=== PATIENT | male | born 1945 | race Caucasian/White ===

== ENCOUNTER 2018-12-25 14:43 | Inpatient (IN) | payer MEDICARE ==
[~2018-12-25] VITALS: Ht 175.3 cm; Wt 68.0 kg
[2018-12-25 15:59] LABS: BASOPHILS ABSOLUTE AUTO 0.04 K/mm3 (0.00-0.23); BASOPHILS PERCENT AUTO 0 % (0-2); EOSINOPHILS ABSOLUTE AUTO 0.02 K/mm3 (0.00-0.68); EOSINOPHILS PERCENT AUTO 0 % (0-6); Hematocrit 48.7 % (37.0-53.0); Hemoglobin 16.4 g/dL (13.5-17.5); IMMATURE GRAN ABSOLUTE AUTO 0.03 K/mm3 (0.00-0.10); IMMATURE GRAN PERCENT AUTO 0 % (0-1); LYMPHOCYTES ABSOLUTE AUTO 0.69 K/mm3 (0.84-5.20); LYMPHOCYTES PERCENT AUTO 7 % (21-46); MONOCYTES ABSOLUTE AUTO 0.59 K/mm3 (0.16-1.47); MONOCYTES PERCENT AUTO 6 % (4-13); Mean Corpuscular HGB 33.7 pg (26.0-34.0); Mean Corpuscular HGB Conc 33.7 g/dL (31.5-36.5); Mean Corpuscular Volume 100 fL (80-100); Mean Platelet Volume 10.1 fL (9.1-12.4); NEUTROPHILS ABSOLUTE AUTO 8.09 K/mm3 (1.96-9.15); NEUTROPHILS PERCENT AUTO 86 % (41-73); Platelet Count 212 K/mm3 (150-400); RDW Coefficient Variation 11.8 % (11.7-14.2); RDW Standard Deviation 43.9 fL (35.1-46.3); Red Blood Cell Count 4.87 M/mm3 (4.30-5.90); White Blood Cell Count 9.46 K/mm3 (4.00-11.30)
[2018-12-25 16:22] LABS: Alanine Aminotransfer (ALT/SGP 23 U/L (12-78); Albumin, Blood 4.4 g/dL (3.4-5.0); Albumin/Globulin Ratio 1.1 (0.8-1.8); Alk Phos 60 U/L (50-136); Anion Gap 9 mmol/L (6-16); Aspartate Aminotrans (AST/SGOT 22 U/L (12-37); Bilirubin, Total 0.9 mg/dL (0.1-1.0); Blood Urea Nitrogen 12 mg/dL (8-24); Bun/Creatinine Ratio 14.2 (12.0-20.0); CO2, Blood 24 mmol/L (21-32); Calcium, Blood 9.7 mg/dL (8.5-10.1); Chloride, Blood 105 mmol/L (98-108); Creatinine, Blood 0.85 mg/dL (0.60-1.20); Globulin, Blood 3.9 g/dL (2.2-4.0); Glomerular Filtration Rate >60 (60-); Glucose, Blood 134 mg/dL (70-99); Potassium, Blood 4.4 mmol/L (3.5-5.5); Sodium, Blood 138 mmol/L (136-145); Total Protein, Blood 8.3 g/dL (6.4-8.2)
[2018-12-25 16:35] LABS: Source, Urine Clean Catch
[2018-12-25 16:52] LABS: Appearance, Urine Clear (Clear); Bilirubin, Urine Neg (Neg); Blood, Urine Neg (Neg); Color, Urine Yellow (P-Yellow); Glucose Qualitative, Urine Neg (Neg); Ketones, Urine 3+ (Neg); Leukocyte Esterase, Urine 1+ (Neg); Nitrite, Urine Neg (Neg); Protein, Urine 1+ (Neg); Specific Gravity, Urine 1.015 (1.003-1.022); Urobilinogen, Urine NORM (Normal)
[2018-12-25 17:05] LABS: Bacteria Rare /hpf; Red Blood Cells, Urine 0-2 /hpf (0-2); Squamous Epithelial Cells Few /hpf (Few)
--- NOTE | 2018-12-25 20:24 | NUR ---
12/25/182023 Fransico Yanez PT HAD PREOP ANTIBIOTICS UNASYN STARTED IN ER AND RE STARTED AT 1948. NEW 18 GUAGE IV STARTED BY BRITTANIE BARNEY IN LT WRIST.
--- NOTE | 2018-12-25 22:52 | NUR ---
PT ARRIVED TO ROOM ICU 15 POST OP AT 2224. PT AWAKE AND AGITATED BUT CONSOLEABLE. PT C/O ABD PAIN 8/[address] ORDOÑEZ AND DR. WEBB AT BEDSIDE. PT'S BP HYPERTENSIVE 198/106; 223/[address] WEBB STATED IS PT'S NORMAL AND THAT PT WAS AWARE OF HIS HTN BUT DOES NOT TREAT. DR. ORDOÑEZ AT THAT TIME GAVE VERBAL ORDER FOR ATIVAN 0.5mg AND WAS GIVEN AT 2244. PT POST OP OF RIGHT DARYL-COLECTOMY AND ARRIVED WITH MID ABD WOUND VAC IN PLACE WITH NO DRAINAGE NOTED IN TUBING AND IS SEALED WITH PROPER SUCTION. DR. ORDOÑEZ PLACING ORDERS AT THIS TIME.
--- NOTE | 2018-12-25 23:29 | NUR ---
O2 2L VIA N/C PLACED TO KEEP SATS >92%. PT NODDED YES IN UNDERSTANDING. WILL CONTINUE TO MONITOR.
--- NOTE | 2018-12-25 23:30 | NUR ---
PT REMAINS HYPERTENSIVE DESPITE ATIVAN AND FENTANYL ADMIN. WILL ADMINISTER HYDRALAZINE PER DR. FREIRE.
--- NOTE | 2018-12-25 23:56 | NUR ---
REPORT CALLED TO DOLORES GARCIA. ALL QUESTIONS ANSWERED.
--- NOTE | 2018-12-26 | NUR ---
RECEIVED HAND OFF FROM RADHA WEIR IN ICU USING SBAR. TRANSPORTED TO ROOM 218 VIA STRETCHER. TRANSFERED TO BED WITH FULL STAFF ASSISTANCE, TOLERATED WELL. LYING IN SEMI FOWLERS WITH EYES OPEN. AAO X3, BARRAZA, FOLLOWS ALL COMMANDS. ORIENTED TO ROOM, CALL SYSTEM, AND POC, VOICED UNDERSTANDING. VOICES CURRENT PAIN LEVEL OF 7/10, WILL CHECK ON PROGRESS OF SED [employer] PUMP WITH PHARMACY. RESPIRATIONS EVEN AND UNLABORRED ON O2 AT 1L/NC. LUNG SOUNDS CLEAR BILATERALLY. ABDOMEN SOFT AND NONDISTENDED. HYPOACTIVE BOWEL SOUNDS PRESENT IN ALL QUADS. NG TUBE CONNECTED TO LIWS AFTER PLACEMENT VERIFIED WITH AIR BOLUS AND RESIDUAL CHECK. MIDLINE INCISION WITH PREVENA IN PLACE, DRESSING IS PATENT. CONTINENT OF BOWEL AND BLADDER, USES URINAL. LEFT WRIST 18G SL PIV IS PATENT. RIGHT AC 18G PIV IS PATENT, INFUSING LR TO GRAVITY. DENIES FURTHER NEEDS OR WANTS AT THIS TIME. SAFETY MEASURES IN PLACE. WILL CONTINUE TO MONITOR.
[2018-12-26 05:53] LABS: BASOPHILS ABSOLUTE AUTO 0.03 K/mm3 (0.00-0.23); BASOPHILS PERCENT AUTO 0 % (0-2); EOSINOPHILS PERCENT AUTO 0 % (0-6); Hematocrit 46.9 % (37.0-53.0); Hemoglobin 15.6 g/dL (13.5-17.5); IMMATURE GRAN ABSOLUTE AUTO 0.06 K/mm3 (0.00-0.10); IMMATURE GRAN PERCENT AUTO 0 % (0-1); LYMPHOCYTES ABSOLUTE AUTO 0.42 K/mm3 (0.84-5.20); LYMPHOCYTES PERCENT AUTO 2 % (21-46); MONOCYTES ABSOLUTE AUTO 1.07 K/mm3 (0.16-1.47); MONOCYTES PERCENT AUTO 6 % (4-13); Mean Corpuscular HGB 33.4 pg (26.0-34.0); Mean Corpuscular HGB Conc 33.3 g/dL (31.5-36.5); Mean Corpuscular Volume 100 fL (80-100); Mean Platelet Volume 10.1 fL (9.1-12.4); NEUTROPHILS ABSOLUTE AUTO 16.04 K/mm3 (1.96-9.15); NEUTROPHILS PERCENT AUTO 91 % (41-73); Platelet Count 194 K/mm3 (150-400); RDW Coefficient Variation 12.1 % (11.7-14.2); RDW Standard Deviation 45.3 fL (35.1-46.3); Red Blood Cell Count 4.67 M/mm3 (4.30-5.90); White Blood Cell Count 17.62 K/mm3 (4.00-11.30)
[2018-12-26 06:16] LABS: Anion Gap 8 mmol/L (6-16); Blood Urea Nitrogen 11 mg/dL (8-24); Bun/Creatinine Ratio 12.9 (12.0-20.0); CO2, Blood 24 mmol/L (21-32); Calcium, Blood 8.6 mg/dL (8.5-10.1); Chloride, Blood 106 mmol/L (98-108); Creatinine, Blood 0.85 mg/dL (0.60-1.20); Glomerular Filtration Rate >60 (60-); Glucose, Blood 175 mg/dL (70-99); Sodium, Blood 138 mmol/L (136-145)
--- NOTE | 2018-12-26 19:42 | NUR ---
SHIFT SUMMARY PAIN HAS BEEN MANAGED WITH PO AND IV PAIN MEDICATION. PT SAT UP TO THE CHAIR WITH 2 PERSON ASSIST TODAY. FAMILY HAS BEEN PRESENT AND PT APPEARS IN [employer]ITS. VSS. REPORT GIVEN TO LILY GARCIA.
[2018-12-27 06:05] LABS: BASOPHILS ABSOLUTE AUTO 0.03 K/mm3 (0.00-0.23); BASOPHILS PERCENT AUTO 0 % (0-2); EOSINOPHILS ABSOLUTE AUTO 0.17 K/mm3 (0.00-0.68); EOSINOPHILS PERCENT AUTO 2 % (0-6); Hematocrit 41.4 % (37.0-53.0); Hemoglobin 13.2 g/dL (13.5-17.5); IMMATURE GRAN ABSOLUTE AUTO 0.02 K/mm3 (0.00-0.10); IMMATURE GRAN PERCENT AUTO 0 % (0-1); LYMPHOCYTES ABSOLUTE AUTO 0.94 K/mm3 (0.84-5.20); LYMPHOCYTES PERCENT AUTO 11 % (21-46); MONOCYTES ABSOLUTE AUTO 0.77 K/mm3 (0.16-1.47); MONOCYTES PERCENT AUTO 9 % (4-13); Mean Corpuscular HGB 32.4 pg (26.0-34.0); Mean Corpuscular HGB Conc 31.9 g/dL (31.5-36.5); Mean Corpuscular Volume 102 fL (80-100); NEUTROPHILS ABSOLUTE AUTO 7.06 K/mm3 (1.96-9.15); NEUTROPHILS PERCENT AUTO 79 % (41-73); Platelet Count 168 K/mm3 (150-400); RDW Coefficient Variation 12.3 % (11.7-14.2); RDW Standard Deviation 46.5 fL (35.1-46.3); Red Blood Cell Count 4.08 M/mm3 (4.30-5.90); White Blood Cell Count 8.99 K/mm3 (4.00-11.30)
[2018-12-27 06:23] LABS: Anion Gap 4 mmol/L (6-16); Blood Urea Nitrogen 10 mg/dL (8-24); Bun/Creatinine Ratio 10.6 (12.0-20.0); CO2, Blood 29 mmol/L (21-32); Calcium, Blood 8.4 mg/dL (8.5-10.1); Chloride, Blood 106 mmol/L (98-108); Creatinine, Blood 0.94 mg/dL (0.60-1.20); Glomerular Filtration Rate >60 (60-); Glucose, Blood 126 mg/dL (70-99); Potassium, Blood 3.8 mmol/L (3.5-5.5); Sodium, Blood 139 mmol/L (136-145)
--- NOTE | 2018-12-27 06:23 | NUR ---
SHIFT SUMMARY: PT ABLE TO GET REST LAST NIGHT. TREATED FOR PAIN 2X c 4MG IV MORPHINE c RELIEF. PT DID NOT PASS GAS OR HAVE BM THIS SHIFT. PT IS NPO BESIDES SIPS, CHIPS, AND POPSICLES. PERVENA DRESSING TO MIDLINE INCISION HAS SMALL BLOODY DRAINAGE. 4MG MORPHINE Q2H PRN. D5LR EUNNING @ 125 ML/HR. SUPPORTIVE FAMILY AT BEDSIDE AT START OF SHIFT. NO OTHER CHANGES TO REPORT. WILL CONT TO MONITOR AND PROVIDE CARE UNTIL PRESUMED BY ONCOMING RN.
--- NOTE | 2018-12-27 07:00 | NUR ---
REPORT FROM LILY GARCIA. ASSUMED PT CARE.
--- NOTE | 2018-12-27 07:23 | NUR ---
ASSESSMENT CHARTED. PT RESTING EASILY. WAKES WITH NOISE. PT C/O SOME ABD PAIN. MANAGED AT THIS TIME. 100ML YELLOW URINE EMPTIED FROM URINAL. PT DENIES NAUSEA.
--- NOTE | 2018-12-27 08:02 | NUR ---
PT MEDICATED PER EMAR ORDERS.
--- NOTE | 2018-12-27 08:30 | NUR ---
NEW CUP OF ICE CHIPS PROVIDED AND POPSICLE PROVIDED. PT APPEARS TO BE RESTING. EYES CLOSED. RESP EVEN AND NON LABORED.
--- NOTE | 2018-12-27 08:58 | NUR ---
PT MEDICATED BY OTHER STAFF FOR THIS RN. DR ORDOÑEZ AT BEDSIDE. WOULD LIKE POST VOID BLADDER SCAN AND I&O CATH FOR RESIDUAL OF >400ML. PLAN TO MONITOR FOR TODAY.
--- NOTE | 2018-12-27 12:15 | NUR ---
PT MEDICATED WITH OXYCODONE FOR PAIN BY OTHER STAFF.
--- NOTE | 2018-12-27 12:30 | NUR ---
PT VOIDED 100ML YELLOW URINE. POST VOID BLADDER SCAN SHOWED 322ML. ASSISTED PT TO STANDING AND PT ABLE TO VOID 125ML URINE. PT AMBULATED APPROX 50FT WITH MINIMAL ASSISTANCE. PT TO CHAIR TO SIT. ICE CHIPS PROVIDED. PT DOING IS.
--- NOTE | 2018-12-27 12:50 | NUR ---
PT BACK TO BED. PT VOIDED 75ML. LIGHTS DIMMED.
--- NOTE | 2018-12-27 13:32 | NUR ---
PT SLEEPING. NADN. RESP EVEN AND NON LABORED. NEW BAG IVF STARTED.
--- NOTE | 2018-12-27 14:20 | NUR ---
THIS RN RECIEVED REPORT FROM OTHER RN AND IS ASSUMING CARE OF PT AT THIS TIME.
--- NOTE | 2018-12-27 14:45 | NUR ---
Patient gave student nurse Marjorie Fung permission to work with him tomorrow and access his chart. 12/27/18 - 12/28/18
--- NOTE | 2018-12-27 18:04 | NUR ---
SHIFT SUMMARY PT TOLERATING ICE CHIPS. PT VOIDING. PT BEEN ASSISTED WITH ADL'S PRN. FAMILY IN/OUT OF ROOM. PT AMBULATED IN HALLWAY WITH ASSIST. PT ASSISTED WITH ABD BINDER. PT SITTING IN RECLINER CHAIR THIS EVENING, CALL LIGHT IN REACH.
--- NOTE | 2018-12-27 22:13 | NUR ---
2213: PT APPEARS IRRITABLE AND VERBALIZES IRRITATION THAT HIS PAIN MEDICATIONS WERE NOT ADMINISTERED PREVIOUSLY WRITTEN ON HIS WHITE BOARD. RN EXPLAINS THAT DISCUSSED AT SHIFT CHANGE SHE WOULD RETURN WITH PAIN MEDS AT A LATER TIME PT REQUESTED AND UPON RETURNING FOUND PT SLEEPING. PT STATES THAT HE WOULD LIKE PRN PAIN MEDS OFFERED AT TIME THEY ARE AGAIN AVAILABLE.
--- NOTE | 2018-12-28 00:43 | NUR ---
0043: PT CALLS AND RN ANSWERS LIGHT IN ROOM; PT REQUESTS PRN PAIN MEDS FOR ABD PAIN 5/10 AND RISING. RN RETURNS WITH PRN PAIN MEDICATION AND PT REFUSES MED STATING "HE DOESN'T WANT IT YET." CONTINUE TO OFFER PRN PAIN MEDS WHEN AVAILABLE.
--- NOTE | 2018-12-28 05:30 | NUR ---
SUMMARY: POD [address] ORDOÑEZ. VSS, AFEBRILE, ROOM AIR. TOLERATING CLEARS, BELCHING BUT NOT YET PASSING GAS. PAIN WELL CONTROLLED WITH PO PERCOCET AND IV MORPHINE. PT APPEARS FRUSTRATED AT TIMES WITH PROGRESSION POST-OP AND ANTICIPATED LENGTH OF RECOVERY. ENCOURAGE OOB ACTIVITY, AMBULATION OF HALLS AND UP TO CHAIR DURING DAY.
--- NOTE | 2018-12-28 10:00 | NUR ---
DR ORDOÑEZ HERE EARLIER, REPORTS PT TO HAVE SMALL AMT OF ICE CHIPS ONLY AT THIS TIME.
--- NOTE | 2018-12-28 14:04 | NUR ---
Pt. is in bed resting he reports doing well besides the Met pt in bed resting, he reports doing fine desides the minor pain he is going throuh, encouraged pt. and offered prayeers/.
--- NOTE | 2018-12-28 14:11 | NUR ---
Met pt lying in bed resting he reports doing we Pt is inn bed rsting he report doing fine encouraged pt. offered prayer and blessed pt.
--- NOTE | 2018-12-28 17:31 | NUR ---
DR ORDOÑEZ HERE TO SEE PT, REPORTS PLACE NGT. REPORTS TALKING WITH FEED WEIGHER.
--- NOTE | 2018-12-28 19:00 | NUR ---
NGT ATTEMPTED WITH NO SUCCESS AT THIS TIME, BRUSHER AND SHEARER TO ASSIST PT PULLED NGT OUT OF NOSE WHILE ATTEMPTING TO PLACE. PT HAD GREEN BILE LOOKING EMESIS. PT NOW REPORTS FEELING OF HAVING TO HAVE BM. PT ASSISTED TO BATHROOM FOR ATTEMPT OF HAVING BM.
--- NOTE | 2018-12-28 19:45 | NUR ---
PT CONT TO PULL OUT NGT WHEN BEING PLACED EVEN WHILE PT SITTING ON HANDS AND HANDS BEING HELD DOWN PER PT REQ TO ASSIST HIM IN NOT PULLING IT OUT WHILE BEING PLACED. MULT RN'S IN ROOM TO ASSIST. PT HAD MULT ATTEMPTS AND IS NOW REFUSING TO HAVE NGT AT THIS TIME. PT REPORTS "HAVING THROWN UP WHILE ATTEMPT EARLIER WAS ENOUGH OUT FOR ME". PT BEEN EDUCATED ON REASON FOR NGT. PT REPORTS FEELING OF HAVING TO HAVE BM. PT ASSISTED TO BATHROOM. WILL UPDATE HS RN.
--- NOTE | 2018-12-28 19:55 | NUR ---
SHIFT SUMMARY PT BEEN ASSISTED WITH ADL'S PRN. PT BEEN MED FOR PAIN. PT UP AND AMBULATED IN HALLWAY EARLIER TODAY. PT THEN SAT IN CHAIR FOR VERY SHORT TIME. HERE THIS EVENING, REQ TO HAVE NGT PLACED. MULT ATTEMPTS WITH MULT RN'S TO PLACE NGT. PT KEPT PULLING OUT EITHER WITH HAND OR MOVING HEAD WHEN BEING PLACED. PT REFUSING NGT AT THIS TIME, ATTEMPTING TO HAVE BM. PT DID HAVE EMESIS FIRST 2 TIMES OF ATTEMPT OF NGT PLACEMENT. ATTEMPT WAS MADE THROUGH BOTH SIDES OF NOSTRILS. HS RN UPDATED. PT WAS MED FOR PAIN AND NAUSEA, DISCUSSED PAIN MGMT EARLIER TODAY.
[2018-12-29 06:02] LABS: BASOPHILS ABSOLUTE AUTO 0.04 K/mm3 (0.00-0.23); BASOPHILS PERCENT AUTO 1 % (0-2); Hematocrit 45.3 % (37.0-53.0); Hemoglobin 15.2 g/dL (13.5-17.5); LYMPHOCYTES ABSOLUTE AUTO 0.19 K/mm3 (0.84-5.20); LYMPHOCYTES PERCENT AUTO 5 % (21-46); MONOCYTES ABSOLUTE AUTO 0.37 K/mm3 (0.16-1.47); MONOCYTES PERCENT AUTO 9 % (4-13); Mean Corpuscular HGB 33.2 pg (26.0-34.0); Mean Corpuscular HGB Conc 33.6 g/dL (31.5-36.5); Mean Platelet Volume 9.7 fL (9.1-12.4); Platelet Count 205 K/mm3 (150-400); RDW Coefficient Variation 11.6 % (11.7-14.2); RDW Standard Deviation 42.4 fL (35.1-46.3); Red Blood Cell Count 4.58 M/mm3 (4.30-5.90)
[2018-12-29 06:03] LABS: EOSINOPHILS ABSOLUTE AUTO 0.04 K/mm3 (0.00-0.68); EOSINOPHILS PERCENT AUTO 1 % (0-6); IMMATURE GRAN ABSOLUTE AUTO 0.01 K/mm3 (0.00-0.10); IMMATURE GRAN PERCENT AUTO 0 % (0-1); Mean Corpuscular Volume 99 fL (80-100); NEUTROPHILS ABSOLUTE AUTO 3.55 K/mm3 (1.96-9.15); NEUTROPHILS PERCENT AUTO 85 % (41-73)
[2018-12-29 06:22] LABS: Anion Gap 8 mmol/L (6-16); Blood Urea Nitrogen 13 mg/dL (8-24); Bun/Creatinine Ratio 13.8 (12.0-20.0); CO2, Blood 27 mmol/L (21-32); Calcium, Blood 8.8 mg/dL (8.5-10.1); Chloride, Blood 104 mmol/L (98-108); Creatinine, Blood 0.94 mg/dL (0.60-1.20); Glomerular Filtration Rate >60 (60-); Glucose, Blood 137 mg/dL (70-99); Potassium, Blood 3.8 mmol/L (3.5-5.5); Sodium, Blood 139 mmol/L (136-145)
--- NOTE | 2018-12-29 07:00 | NUR ---
REPORT FROM SUMMER RN. ASSUMED PT CARE.
--- NOTE | 2018-12-29 07:15 | NUR ---
PT MEDICATED WITH 1 PERCOCET 5MG PO AND 15MG TORADOL IV FOR PAIN RATED 3/10. PT IN NO DISTRESS. ANSWERS QUESTIONS APPROPRIATELY. PROVENA RESET DUE TO ALARM. PT MOVES ALL EXTREMITIES INDEPENDENTLY. STATES HE HAS A LITTLE NAUSEA. PLAN TO AMBULATE AFTER BREAKFAST. PT AGREEABLE. CALL LIGHT IN REACH. ASSESSMENT CHARTED.
--- NOTE | 2018-12-29 07:50 | NUR ---
DR ORDOÑEZ TO ROOM FOR EVAL. PLAN TO CONTINUE IVF, NPO EXCEPT FOR ICE CHIPS. HOLD PO PAIN MEDS AND USE IV MORPHINE NEEDED. FAMILY AT BEDSIDE. PT CANDID AND INTERACTING WELL.
--- NOTE | 2018-12-29 08:47 | NUR ---
PT MEDICATED WITH MORPHINE AND ZOFRAN PER EMAR. LOVENOX GIVEN. PT PLACED BACK ON .
--- NOTE | 2018-12-29 09:15 | NUR ---
PT APPEARS TO BE RESTING IN POSTION OF COMFORT. RESP EVEN AN NON LABORED.
--- NOTE | 2018-12-29 10:15 | NUR ---
PT UP TO CHAIR. PINKY WELL. 100ML DEIRDRE URINE EMPTIED FROM URINAL. BED LINENS AND GOWN CHANGED. FAMILY AT BEDSIDE.
--- NOTE | 2018-12-29 12:15 | NUR ---
ASSUMED CARE OF PT. PT IS IN BED SLEEPING. FAMILY AT BEDSIDE. CALL LIGHT IN REACH.
--- NOTE | 2018-12-29 13:14 | NUR ---
Met pt sitting in a chair he is doing well pt. reports ,family members are in the room on visit,encouraged pt and offered prayers.
--- NOTE | 2018-12-29 17:30 | NUR ---
recve report from previous RN Johana, pt in room with family, a/0 x 4, pleasant/cooperartive, no n/v at this time. bed in lowest position, bed rails up, call light within reach, assumed care of pt
--- NOTE | 2018-12-30 00:45 | NUR ---
RECEIVED HAND OFF FROM Tee BRADFORD RN USING SBAR. LYING IN HIGH FOWLERS WITH EYES OPEN. AAO X3, BARRAZA, FOLLOWS ALL COMMANDS. DENIES AND NEEDS OR WANTS AT THIS TIME. SAFETY MEASURES IN PLACE. WILL CONTINUE TO MONITOR.
--- NOTE | 2018-12-30 06:22 | NUR ---
NO CHANGES SINCE ASSUMPTION OF CARE. NO FURTHER C/O PAIN OR DISCOMFORT, MEDICATED ONCE. DENIES FURTHER NEEDS OR WANTS AT THIS TIME. SAFETY MEASURES IN PLACE. WILL GIVE HAND OFF TO ONCOMING SHIFT USING SBAR DURING BEDSIDE REPORT.
[2018-12-30 07:23] LABS: Anion Gap 5 mmol/L (6-16); Blood Urea Nitrogen 13 mg/dL (8-24); Bun/Creatinine Ratio 15.6 (12.0-20.0); CO2, Blood 27 mmol/L (21-32); Calcium, Blood 8.2 mg/dL (8.5-10.1); Chloride, Blood 107 mmol/L (98-108); Creatinine, Blood 0.83 mg/dL (0.60-1.20); Glomerular Filtration Rate >60 (60-); Glucose, Blood 115 mg/dL (70-99); Potassium, Blood 3.7 mmol/L (3.5-5.5); Sodium, Blood 139 mmol/L (136-145)
--- NOTE | 2018-12-30 13:34 | NUR ---
DR ORDOÑEZ TO ROOM. PLAN TO CONT NG TO INTERMITTENT LOW WALL SUCTION. FAMILY AT BEDSIDE. ICE CHIPS PROVIDED. 175ML YELLOW URINE COLLECTED.
--- NOTE | 2018-12-30 13:54 | NUR ---
Met pt. in bed and family members in the broom on visit, pt. reports of having some pain ,encouraged pt. and offered some prayers.
--- NOTE | 2018-12-30 18:02 | NUR ---
SHIFT SUMMARY PAIN HAS BEEN MANAGED WITH IV MORPHINE. PT HAS AMBULATED IN THE HALLWAYS MULTIPLE TIMES WITH FAMILY. HE REPORTS PASSING FLATUS. NG TUBE TO LOW INTERMITTENT SUCTION AND PUTTING OUT DARK GREEN FLUID. VSS. WILL MONITOR UNTIL REPORT TO ONCOMING RN.
--- NOTE | 2018-12-31 07:34 | NUR ---
SUMMARY PT SLEPT OFF AND ON LAST NIGHT. REPORTS PASSING FLATUS. 50 ML OUT PER NG. NO C/O NAUSEA.MS IV FOR PAIN AND SLEEP. 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 DR PAYNE MAKING ROUNDS. DAY RN FOLLOWING UP IN REGARDS TO THIS.VOIDING WITHOUT REPORTED DIFF.
[2018-12-31 08:59] LABS: BASOPHILS ABSOLUTE AUTO 0.03 K/mm3 (0.00-0.23); BASOPHILS PERCENT AUTO 0 % (0-2); EOSINOPHILS ABSOLUTE AUTO 0.32 K/mm3 (0.00-0.68); EOSINOPHILS PERCENT AUTO 4 % (0-6); Hemoglobin 14.2 g/dL (13.5-17.5); IMMATURE GRAN ABSOLUTE AUTO 0.04 K/mm3 (0.00-0.10); IMMATURE GRAN PERCENT AUTO 0 % (0-1); LYMPHOCYTES ABSOLUTE AUTO 0.72 K/mm3 (0.84-5.20); LYMPHOCYTES PERCENT AUTO 8 % (21-46); MONOCYTES ABSOLUTE AUTO 0.79 K/mm3 (0.16-1.47); MONOCYTES PERCENT AUTO 9 % (4-13); Mean Corpuscular HGB 33.4 pg (26.0-34.0); Mean Corpuscular HGB Conc 33.8 g/dL (31.5-36.5); Mean Corpuscular Volume 99 fL (80-100); Mean Platelet Volume 9.5 fL (9.1-12.4); NEUTROPHILS ABSOLUTE AUTO 7.07 K/mm3 (1.96-9.15); NEUTROPHILS PERCENT AUTO 79 % (41-73); Platelet Count 259 K/mm3 (150-400); RDW Coefficient Variation 11.6 % (11.7-14.2); RDW Standard Deviation 42.1 fL (35.1-46.3); Red Blood Cell Count 4.25 M/mm3 (4.30-5.90); White Blood Cell Count 8.97 K/mm3 (4.00-11.30)
[2018-12-31 09:12] LABS: Anion Gap 8 mmol/L (6-16); Blood Urea Nitrogen 10 mg/dL (8-24); Bun/Creatinine Ratio 12.2 (12.0-20.0); CO2, Blood 25 mmol/L (21-32); Calcium, Blood 8.8 mg/dL (8.5-10.1); Chloride, Blood 106 mmol/L (98-108); Creatinine, Blood 0.82 mg/dL (0.60-1.20); Glomerular Filtration Rate >60 (60-); Glucose, Blood 101 mg/dL (70-99); Potassium, Blood 3.2 mmol/L (3.5-5.5); Sodium, Blood 139 mmol/L (136-145)
--- NOTE | 2018-12-31 13:33 | NUR ---
Met pt. in bed resting, pt. reports doing fine encouraged pt. and offered prayers and blessing.
--- NOTE | 2018-12-31 20:07 | NUR ---
SOB PT STARTED TO COMPLAIN OF SOB AT APPROXIMATELY 1743. VS WERE CHECKED AND PT REMAINED STABLE ON RA ALL VSS. DR. REYNOLDS WAS NOTIFIED OF SOB. ORDER FOR CHEST CT, HOSPITALIST CONSULT, SCD'S AND STAT DOSE OF LOVENOX ORDERED. DR. REYNOLDS NOTIFIED THAT PT HAD BEEN REFUSING LOVENOX BUT WAS EDUCATED ABOUT THE RISKS OF NOT TAKING LOVENOX. DR. MONTERO WAS CONSULTED FOR SOB. HE WAS NOTIFIED THAT PT DEVELOPED A COUGH THIS AFTERNOON AND LUNG SOUNDS FOR R BASE BECAME DIMINISHED. REPORT GIVEN TO NOC RADHA DARDEN.
--- NOTE | 2018-12-31 22:33 | NUR ---
PHYSICIAN COMMUNICATION [id number]. DR. REYNOLDS MADE AWARE OF CHEST CT RESULTS, D-DIMER OF 9.65 AND BNP OF 179. ALSO NOTIFED PT HAS RED AREA L ARM FROM PRIOR IV SITE, NO SIGNIFICAN SWELLING NOTED; PPPX4; PT DENIES CALF PAIN. ALSO NOTIFIED PT HAVING FREQUENT LOOSE STOOLS. NO NEW ORDERS RECIEVED. WCTM. WILL ENCOURAGE PT TO USE I/S.
--- NOTE | 2018-12-31 22:42 | NUR ---
NOTIFIED OF LOOSE STOOL AND SCDS OFF FOR PATIENT TO MAKE IT TO [facility] QUICKLY PER HIS REQUEST.
[2019-01-01 04:31] LABS: BASOPHILS ABSOLUTE AUTO 0.04 K/mm3 (0.00-0.23); BASOPHILS PERCENT AUTO 1 % (0-2); EOSINOPHILS ABSOLUTE AUTO 0.33 K/mm3 (0.00-0.68); EOSINOPHILS PERCENT AUTO 4 % (0-6); Hematocrit 38.1 % (37.0-53.0); Hemoglobin 13.3 g/dL (13.5-17.5); IMMATURE GRAN ABSOLUTE AUTO 0.05 K/mm3 (0.00-0.10); IMMATURE GRAN PERCENT AUTO 1 % (0-1); LYMPHOCYTES ABSOLUTE AUTO 0.67 K/mm3 (0.84-5.20); LYMPHOCYTES PERCENT AUTO 8 % (21-46); MONOCYTES ABSOLUTE AUTO 1.08 K/mm3 (0.16-1.47); MONOCYTES PERCENT AUTO 13 % (4-13); Mean Corpuscular HGB 33.5 pg (26.0-34.0); Mean Corpuscular HGB Conc 34.9 g/dL (31.5-36.5); Mean Corpuscular Volume 96 fL (80-100); Mean Platelet Volume 9.2 fL (9.1-12.4); NEUTROPHILS PERCENT AUTO 74 % (41-73); Platelet Count 254 K/mm3 (150-400); RDW Coefficient Variation 11.6 % (11.7-14.2); RDW Standard Deviation 40.9 fL (35.1-46.3); Red Blood Cell Count 3.97 M/mm3 (4.30-5.90); White Blood Cell Count 8.27 K/mm3 (4.00-11.30)
[2019-01-01 04:51] LABS: Anion Gap 9 mmol/L (6-16); Blood Urea Nitrogen 8 mg/dL (8-24); Bun/Creatinine Ratio 10.6 (12.0-20.0); CO2, Blood 24 mmol/L (21-32); Calcium, Blood 8.6 mg/dL (8.5-10.1); Chloride, Blood 105 mmol/L (98-108); Creatinine, Blood 0.76 mg/dL (0.60-1.20); Glomerular Filtration Rate >60 (60-); Glucose, Blood 115 mg/dL (70-99); Potassium, Blood 3.1 mmol/L (3.5-5.5); Sodium, Blood 138 mmol/L (136-145)
--- NOTE | 2019-01-01 05:59 | NUR ---
SHIFT SUMMARY PT A&O X4 T/O SHIFT. POD#7; MIDLINE SITE OPEN TO AIR, [place]; NO REDNESS NOTED, SITE DRY. PAIN MANGED PER EMAR. BTX4; ABD SOFT. PT HAD SEVERAL LIQUID/LOOSE STOOLS DURING EARLY PART OF SHIFT. SCD'S TO BLE'S. PPPX4; NO SWELLING/REDNESS NOTED TO BILAT CALVES. SEE NOTE REGARDING PHYSICAIN COMMUNICATION. PT DENIES SOB AT REST; MOIST COUGH NOTED. PT DENIES N/T IN EXT. CALL LIGHT IN REACH; PT DEMONSTRATES USE. WCTM UNTIL REPORT TO DAY SHIFT RN.
--- NOTE | 2019-01-01 17:24 | NUR ---
SHIFT SUMMARY PT A&OX4, VSS. POD#7 EXP LAP R HEMICOLECTOMY, REDUCE HERNIA, MIDLINE CRALTON VIRAL. MULTIPLE BMS TODAY. NG OUT, DENIES N&V, PINKY PO, REG DIET. AMB INDEPENDENT TO BRP. SAT IN CHAIR T/O SHIFT. FAMILY AT BEDSIDE. WCTM & TX PER EMAR UNTIL REPORT GIVEN TO ONCOMING MARKEL GARCIA.
[2019-01-02 05:07] LABS: Anion Gap 10 mmol/L (6-16); Blood Urea Nitrogen 11 mg/dL (8-24); CO2, Blood 22 mmol/L (21-32); Calcium, Blood 9.2 mg/dL (8.5-10.1); Chloride, Blood 103 mmol/L (98-108); Creatinine, Blood 0.92 mg/dL (0.60-1.20); Glomerular Filtration Rate >60 (60-); Glucose, Blood 109 mg/dL (70-99); Potassium, Blood 3.7 mmol/L (3.5-5.5); Sodium, Blood 135 mmol/L (136-145)
[2019-01-02] MEDS ORDERED: OXYC5 PO (11:39)
[2019-01-02] MEDS ORDERED: LEVFLO500 PO (11:47)
--- NOTE | 2019-01-02 12:31 | NUR ---
DISCHARGE SUMMARY PT A&OX4, VSS, LEFT FLOOR VIA WC WITH RN TO GO HOME WITH , SON & DAUGHTER, WITH ALL PERSONAL POSSESSIONS INCLUDING DISCHARGE PACKET AND 1 NARC SCRIPT. ABX ORDER WAS CALLED INTO [facility]. DISCHARGE INSTRUCTIONS PROVIDED. PT REP UNDERSTANDING THOSE INSTRUCTIONS INCLUDING FU WITH PCP ON Thursday01/06/19 FOR STAPLE REMOVAL, OKAY TO SHOWER, NO TUB BATHS, NO LIFTING > 10 LBS, WEAR ABD BINDER, FU FOR BP MEDS. IVS AKHIL'D.
== END 2019-01-02 12:00 | disposition home or self-care (01) | DRG 329 ==
LOC: ER 14:43 → SURS 22:34 → ICUW 22:34 → SURS 23:56
PROVIDERS: Internal Medicine; Physician Assistant; ADMIT Surgery
PROC: 0DQV0ZZ Repair Mesentery, Open Approach (ICD-10-PCS; 2018-12-25)
PROC: 0D9H3ZZ Drainage of Cecum, Percutaneous Approach (ICD-10-PCS; 2018-12-25)
PROC: 0DTF0ZZ Resection of Right Large Intestine, Open Approach (ICD-10-PCS; principal; 2018-12-25 18:45)
DX: K56.699 Other intestinal obstruction unspecified as to partial versus complete obstruction (principal); J18.9 Pneumonia, unspecified organism; K46.0 Unspecified abdominal hernia with obstruction, without gangrene; E87.6 Hypokalemia; I10 Essential (primary) hypertension
CPT/HCPCS: 36415; 71260; 74177; 80048; 80053; 81001; 83605; 83690; 83735; 83880; 84100; 85025; 85379; 87086; 88307; 93005; 93010; 94762; 96374-59; 99285-25; C9113; J0295; J0360; J1100; J1170; J1650; J1885; J2060; J2270; J2405; J2543; J2710; J3010; J3360; J3480; J7120; Q9967